=== PATIENT | female | born 1965 | race Caucasian/White ===

== ENCOUNTER 2020-02-10 17:33 | Emergency (ER) | payer OTHER ==
[~2020-02-10] VITALS: Ht 160 cm; Wt 78.9 kg
[2020-02-10] MEDS ORDERED: NORCO 5-325 TA1 EACH PO (19:46)
[2020-02-10] MEDS ORDERED: IBUPROFEN600 MG PO (19:46)
== END 2020-02-10 20:45 | disposition home or self-care (01) ==
LOC: ED 17:33
DX: S52.502A Unspecified fracture of the lower end of left radius, initial encounter for closed fracture (principal); V80.010A Animal-rider injured by fall from or being thrown from horse in noncollision accident, initial encounter; Y93.89 Activity, other specified; Y92.89 Other specified places as the place of occurrence of the external cause; Y99.8 Other external cause status